=== PATIENT | female | born 1955 | race Caucasian/White ===

== ENCOUNTER 2017-11-09 00:22 | Emergency (ER) | END 2017-11-09 02:23 | disposition home or self-care (01) ==

== ENCOUNTER 2018-10-13 08:03 | Inpatient (IN) | payer OTHER ==
[~2018-10-13] VITALS: Ht 170.2 cm; Wt 79.5 kg
[2018-10-13 12:23] VITALS: BP 110/63; PULSE 76; RESP 18
[2018-10-13 12:40] VITALS: Ht 170.2 cm; Wt 79.5 kg
[2018-10-13] MEDS ORDERED: IBUPROFEN 200 MG TAB PO ONE (14:00)
[2018-10-13] MEDS ORDERED: IBUPROFEN 400 MG TAB PO ONE (14:30)
[2018-10-13] MEDS ORDERED: CEFTRIAXONE 1 GM/50 ML (PMX) 50 ML IVPB SCH (16:30)
[2018-10-13] MEDS ORDERED: NACL 0.9% 3 ML SYG IV SCH (16:30)
[2018-10-13] MEDS ORDERED: DOCUSATE SODIUM 100 MG CAP PO PRN (16:30)
[2018-10-13] MEDS ORDERED: ZOLPIDEM 5 MG TAB PO PRN (16:30)
[2018-10-13] MEDS ORDERED: ACETAMINOPHEN 325 MG TAB PO PRN (16:30)
[2018-10-13] MEDS ORDERED: ONDANSETRON 4 MG INJ IV PRN (16:30)
[2018-10-13] MEDS ORDERED: morphine 2 MG INJ IV PRN (16:30)
[2018-10-13] MEDS ORDERED: IBUPROFEN 400 MG TAB PO PRN (16:30)
[2018-10-13] MEDS ORDERED: HYDROCODONE/APAP (5/325) TAB PO PRN (16:30)
[2018-10-13] MEDS ORDERED: AZITHROMYCIN 500MG/NS (PMX) 250 ML IVPB SCH (19:30)
[2018-10-13 20:18] VITALS: BP 100/63; PULSE 77; RESP 16
[2018-10-14 02:59] VITALS: BP 92/54; PULSE 74; RESP 18
[2018-10-14 08:00] VITALS: BP 109/71; PULSE 85; RESP 20
[2018-10-14] MEDS ORDERED: FUROSEMIDE 20 MG INJ IV SCH (09:00)
[2018-10-14] MEDS ORDERED: NICOTINE (14 MG/24 HR) PATCH TRANSDERM SCH (09:00)
[2018-10-14 14:00] VITALS: BP 113/73; PULSE 72; RESP 20
== END 2018-10-14 16:30 | disposition home or self-care (01) | DRG 188 ==
LOC: UNDOADMIN 08:03 → REC 08:03 → PP2 12:00
PROVIDERS: ADMIT Internal Medicine; ATTEND Internal Medicine
DX: J90 Pleural effusion, not elsewhere classified (principal); F17.210 Nicotine dependence, cigarettes, uncomplicated; G47.33 Obstructive sleep apnea (adult) (pediatric); G43.909 Migraine, unspecified, not intractable, without status migrainosus; R07.89 Other chest pain; R07.81 Pleurodynia; Z90.49 Acquired absence of other specified parts of digestive tract
CPT/HCPCS: 71045; 76604; 76705; 80048; 80061; 81001; 83036; 83735; 84100; 84436; 84479; 85025; 85651; 86140; 87081; J0456; J1940